=== PATIENT | female | born 1945 | race Caucasian/White ===

== ENCOUNTER 2018-02-19 05:52 | Day surgery (SDC) | payer OTHER ==
[2018-02-16 14:25] LABS: Absolute Lymphocytes (CBC) 1.7 K/uL (0.7-4.9); Absolute Monocytes 0.5 K/uL (0.1-1.3); Absolute Neutrophil 5.5 K/uL (1.8-8.0); Basophils % 0.4 % (0-1.3); Eosinophils % 0.7 % (0-4.4); Hematocrit 38.6 % (36.0-45.0); Lymphocytes % 21.5 % (15.3-44.8); MCH 25.7 pg (27.0-35.0); MCV 78.8 fL (80-100); MPV 8.7 fL (7.6-11.3); Monocytes % 6.1 % (3.3-12.3)
[2018-02-16 14:26] LABS: Protime INR 0.98
[2018-02-16 14:53] LABS: Urine Appearance CLEAR; Urine Bilirubin NEGATIVE (NEG); Urine Blood NEGATIVE (NEG); Urine Color YELLOW; Urine Glucose NEGATIVE (NEG); Urine Protein NEGATIVE (NEG); Urine Urobilinogen 0.2 mg/dL (0.2-1.0); Urine pH 6.5 (5.0-7.0)
[2018-02-16 14:59] LABS: Urine Microscopic Reflex NO UMIC
[2018-02-19] MEDS ORDERED: Ringers Lactate 1,000 ML IV ONE ×2 (06:08→09:02)
[2018-02-19] MEDS ORDERED: PROPOFOL 200 MG/20 ML VIAL IV ONE (06:47)
[2018-02-19] MEDS ORDERED: NA CHLORIDE 0.9% 100 ML IV ONE (06:47)
[2018-02-19] MEDS ORDERED: LIDOCAINE 2% MPF 5 ML VIAL ONE (06:48)
[2018-02-19] MEDS ORDERED: VASOPRESSIN 20 UNIT/ML VIAL ONE (06:48)
[2018-02-19] MEDS ORDERED: CEFAZOLIN/SWI 1gm 1 GM/10 ML SYR ONE ×2 (06:48→07:14)
[2018-02-19] MEDS ORDERED: FENTANYL CITR 250 MCG/5 ML ONE (06:49)
[2018-02-19] MEDS ORDERED: ONDANSETRON HCL 40 MG/20 ML VIAL ONE (06:54)
[2018-02-19] MEDS ORDERED: MIDAZOLAM HCL 2 MG/2 ML INJ ONE (06:54)
[2018-02-19] MEDS ORDERED: ROCURONIUM 50 MG/5 ML VIAL IV ONE ×2 (06:54→08:46)
[2018-02-19] MEDS ORDERED: EPHEDRINE SULF 50 MG/5 ML SYR ONE (08:08)
[2018-02-19] MEDS ORDERED: FENTANYL CITR 100 MCG/2 ML ONE (09:36)
[2018-02-19] MEDS ORDERED: GLYCOPYRROLATE 0.2 MG/ML SYR ONE (09:56)
[2018-02-19] MEDS ORDERED: NEOSTIGMINE 1 MG/ML -5 ML SYRINGE ONE (10:08)
[2018-02-19] MEDS ORDERED: ONDANSETRON 4 MG/2 ML VIAL IV PRN (10:31)
[2018-02-19] MEDS ORDERED: ACETAMINOPHEN 500 MG TAB PO PRN (10:31)
[2018-02-19] MEDS: MEPERIDINE HCL 25 MG/0.5 ML ONE ×2 (10:45→10:54)
[2018-02-19] MEDS ORDERED: Ringers Lactate 1,000 ML IV SCH (11:00)
[2018-02-19 11:38] VITALS: BMI 34.3
[2018-02-19] MEDS: MORPHINE 4 MG/ML SYR IV PRN ×3 (12:48→21:30)
[2018-02-19] MEDS ORDERED: PNEUMOCOCCAL VACCINE 0.5 ML IMVAC ONE (13:00)
[2018-02-19 22:52] VITALS: O2SAT 98
--- NOTE | 2018-02-19 23:29 | OP ---
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 Postoperative Diagnoses: Stage II anterior wall prolapse, uterine prolapse, potential stress urinary incontinence, actually seen at the surgery and stage I rectocele. Procedures Performed: 1.Anterior wall repair with Uphold graft. 2.Bilateral sacrospinous ligament fixation colpopexy. 3.Mid urethral sling (TVT-O) and cystoscopy. Anesthesia: General. Specimens: No specimens. Complications: No complications. Drains: Almeida catheter and vaginal packing. Condition: The patient's condition is stable. Findings: Her POP-Q was as follows 0, +1, -3, 4, moderately thick and 7, -2, -2, -4 on the exam. Th ere was a left paravaginal defect greater than the right and the uterus is slightly deviated to the r ight. The patient had a history of prolapse, and she was seen a year and a half ago originally for this. S he was evaluated and she was planned to have a surgery; however, due to a bladder infection, her surg ruthie was canceled. After this, the patient was busy with her life and her personal life events. So, we used a pessary for almost a year. She has had atrophy and mild erosion with the pessary and she d id not want to continue with the pessary any longer. She wanted surgical treatment, so she did not h ave to worry about the pessary maintenance and followup visits, she would not do the healthcare. So, she was evaluated with urodynamics testing prior to the first procedure and which showed occult stre ss urinary incontinence. The patient understands and agrees. She thinks that the surgical route is the best for her at this time. Abdominal vaginal repairs were both discussed with the patient. Ther e was no need for a hysterectomy at this time. She had a thickened lining, so I did the hysteroscopy , D and C and there was a benign pathology of the polyp. No postmenopausal bleeding, so there was no need for any hysterectomy or BSO at this time. So, after discussing the comorbidities, recovery will e and length of surgery with both abdominal and vaginal repairs, she chose to go the vaginal route an d we had an extensive discussion about the graft and its complications and beneficial effects. She w as given all the information and data and all questions were answered in multiple fashions. She was consented and brought to the OR, and 1 g of Ancef was given. Description Of Procedure: She was taken to the OR, placed in supine fashion. After general anesthes ia was given, she was placed in a dorsal lithotomy position using Navid stirrups. The vulva, vagina, lower abdomen and perineum were prepped and draped in a sterile fashion. Almeida was placed to drain the bladder, clamped and retracted superiorly. After exam under anesthesia, there was not an obvious posterior defect that was stage II. Originally I had thought that the perineal body was not as thic k; however, this was not the case, it was moderate to thick. Rectovaginal exam was performed as well . Decision was made not to do a posterior repair because of the intact perineum and the genital hiat us was only 3 cm after the anterior repair was done. The bladder neck was identified and an Allis clamp placed immediately proximal to it. Then the cervi x was grasped and the vaginal epithelium was grasped in the midline proximal part with the help of an other Allis. The injection was done on both sides with dilute vasopressin 20 units in 50 cc of maría l saline in the midline as well as on the sides. Then, a scalpel was used to open the vaginal epithe lium. Dissection was carried into the vesicovaginal plane by taking down the bladder and retracting it medially, first on the right side, then on the left side, dissection was performed. The dissectio n on the right side was somewhat more difficult, likely due to the deviation of the uterus as well as a more intact lateral support here than it was on the opposite side, so I went ahead and sharply dis sected into the paravaginal space, then went to the pararectal space after palpating the ischial spin e on the right side, which was quite prominent. Then, sweeping medial to lateral and posteriorly tow ards the coccyx and sacrospinous ligament was exposed through the coccygeus muscle, and dissection wa s performed on the opposite side. This was relatively easier and as the ligament was cleaned up, the entire bladder was released from all the edges and there is a modified [place] stitch at the bladder n hiro including the vaginal fascia. The 2-0 Vicryl sutures were placed in a [id number] fashion to get these click at the bladder neck overlap. Then I went on to place the Uphold graft. Cervix was exposed after dissecting the bladder. This was deviated to the right side, then went paravaginally i nto the pararectal space and Capio device was used to place the Uphold stitch on the sacrospinous lig ament on the right side, 2 cm medial and posterior to the ischial spine then on the opposite side, sl ightly more closer because the 2 bites that were taken towards the mid sacrospinous ligament were not optimal, so we took a bite about a centimeter lateral and posterior to the ischial spine and then th e mesh was tensioned appropriately, if needed a little loose and attaching the proximal part to the t op of the cervix in 3 fixation points with the 2-0 PDS. Once all these were placed, then a pursestri ng 2-0 Vicryl suture was placed to reduce this to the bladder. Then, I tensioned the graft in approp riately, a 2-0 Vicryl suture was used to close the vaginal epithelium in a continuous running horizon jean carlos mattress fashion and the distal part of the mesh was secured with the 3-0 Vicryl sutures in the m idline and to the right side. Then, there was some bleeding from the right side after holding pressu re on the ligament for about 2 minutes, then adjustment well. There was no bleeding. Anteriorly, af ter this was all closed, a mid urethral sling was done. Two Allis clamps were placed on either sides of the urethra. Markings were placed on the outside for the TVT-O, and surface markings in the usual fashion. Then, the mid urethra was injected with dilut e vasopressin, 10 cc. Incision made with a scalpel. A 1-cm incision was made. Then dissection was carried in a 45 degrees angle to the horizontal and vertical planes to the ipsilateral shoulder under the inferior pubic ramus perforating through the obturator membrane. Then tract was opened up and i n a similar fashion, opposite side was done as well. Then, I attempted to place a Pattie spike, but this was too thick at this point and feel comfortable. The wing guide was used to replace the pads. After getting it passed through the obturator membrane, the spike was passed and turned in the usua l fashion on both sides. The sling was tensioned appropriately. The sheaths were pulled out as well as the plastic trocars. With the help of Metzenbaum, the tensioning was done and this was excellent . After irrigating the graft, the vaginal epithelium was closed in a continuous running locked fashi on with 3-0 Vicryl and the skin incisions closed with the help of Dermabond. Cystoscopy was performe d with a 30-degree lens and the normal saline. There were excellent streams of urine from both urete wolfgang orifices. No evidence of any foreign body or trauma to the bladder. Scope was removed and the p atient was recovered from anesthesia after instrument and sponge counts x3 were correct at the end of the case. The patient tolerated the procedure well. Rectal exam was done, was negative. TOÑO/LASHONDA Voice ID: [id number] Report ID: [id number]
[2018-02-20] MEDS ORDERED: LISINOPRIL 20 MG TAB PO SCH (06:00)
[2018-02-20] MEDS ORDERED: hydroCHLOROthiazide 12.5 MG CAP PO SCH (06:00)
[2018-02-20] MEDS ORDERED: LEVOTHYROXINE SOD 0.075 MG TAB PO SCH (06:00)
[2018-02-20] MEDS ORDERED: HOME MED 1 EA UNK (Lisinopril/Hydrochlorothiazide [Lisinopril-Hctz 20-12.5 Mg Tab] 1 EACH) PO SCH (06:00)
[2018-02-20] MEDS ORDERED: LEVOTHYROXINE SOD 0.1 MG TAB PO SCH (06:00)
[2018-02-20 06:23] LABS: Absolute Lymphocytes (CBC) 1.7 K/uL (0.7-4.9); Absolute Monocytes 0.8 K/uL (0.1-1.3); Absolute Neutrophil 6.6 K/uL (1.8-8.0); Basophils % 0.4 % (0-1.3); Eosinophils % 1.5 % (0-4.4); Hematocrit 32.7 % (36.0-45.0); Lymphocytes % 18.7 % (15.3-44.8); MCH 25.4 pg (27.0-35.0); MCV 79.4 fL (80-100); MPV 8.6 fL (7.6-11.3); Monocytes % 8.2 % (3.3-12.3); RBC Red Blood Cell Count 4.12 M/uL (3.86-4.86)
[2018-02-20] MEDS ORDERED: PANTOPRAZOLE 40MG TABLET PO SCH (06:30)
[2018-02-20 07:58] VITALS: BP 122/67; TEMP 97.6
[2018-02-20] MEDS ORDERED: AMLODIPINE 2.5 MG TAB PO SCH (09:00)
[2018-02-20] MEDS ORDERED: HOME MED 1 EA UNK (Levothyroxine Sodium [Synthroid] 175 MCG) PO SCH (09:00)
[2018-02-20] MEDS ORDERED: NITROFURAN MACRO 100 MG CAP PO SCH (09:00)
== END 2018-02-20 08:55 | disposition home or self-care (01) ==
LOC: OR 05:52 → 2ND-WC 10:31 → OR 02-20 08:55
PROVIDERS: ATTEND Obstetrics & Gynecology
PROC: 0USG7ZZ Reposition Vagina, Via Natural or Artificial Opening (ICD-10-PCS; 2018-02-19)
PROC: 0JUC0JZ Supplement of Pelvic Region Subcutaneous Tissue and Fascia with Synthetic Substitute, Open Approach (ICD-10-PCS; 2018-02-19)
PROC: 0TJB8ZZ Inspection of Bladder, Via Natural or Artificial Opening Endoscopic (ICD-10-PCS; 2018-02-19)
PROC: 0TSD0ZZ Reposition Urethra, Open Approach (ICD-10-PCS; principal; 2018-02-19 07:00)
DX: N81.2 Incomplete uterovaginal prolapse (principal); N81.6 Rectocele; M06.9 Rheumatoid arthritis, unspecified; I10 Essential (primary) hypertension; E03.9 Hypothyroidism, unspecified; J44.9 Chronic obstructive pulmonary disease, unspecified
CPT/HCPCS: 36415 ×2; 57240; 57267; 57282; 57288; 81003; 85025 ×2; 85610; 85730; 86850; 86900; 86901; J0690 ×2; J2175; J2250; J2405; J2710; J3010